=== PATIENT | male | born 1990 | race Two or more races ===

== ENCOUNTER → 2017-12-10 | Day surgery (SDC) | payer OTHER ==
[~2017-12-10] MED LIST: FLAGYL500MG PO; MILLIPRED DP5 MG PO; RECTICARE30 GM TOP; ULTRACET PO; [UNRECOGNIZED DRUG - OTHER] IV
== END | disposition home or self-care (01) ==
LOC: ADM 11-29 11:00 → CIR.AMB 05:29
DX: K60.5 Anorectal fistula (principal)

== ENCOUNTER 2019-09-10 06:30 | Day surgery (SDC) | payer OTHER ==
[~2019-09-10 06:30] MED LIST changes: +METRONIDAZOLE500 MG PO; +REMICADE
[2019-09-10] MEDS ORDERED: PERCOCET 5-3251 EACH PO (13:14)
[2019-09-10] MEDS ORDERED: METRONIDAZOLE500 MG PO (13:15)
[2019-09-10] MEDS ORDERED: CIPRO500 MG PO (13:15)
== END 2019-09-10 14:25 | disposition home or self-care (01) ==
LOC: CIR.AMB 06:30
DX: K50.814 Crohn's disease of both small and large intestine with abscess (principal); K50.813 Crohn's disease of both small and large intestine with fistula; K60.5 Anorectal fistula